=== PATIENT | female | born 1975 | race Caucasian/White ===

== ENCOUNTER 2019-08-22 17:08 | Outpatient (REF) | payer MEDICAID, SELFPAY ==
[2019-08-22 19:26] LABS: Anion Gap 6.2 mmol/L (3-11); BUN 16 mg/dL (7-18); CO2 30.8 mmol/L (21.0-32.0); CREATININE 0.88 mg/dL (0.55-1.02); Calcium 8.8 mg/dL (8.5-10.1); Chloride 107 mmol/L (98-107); Glucose 90 mg/dL (74-106); Potassium 4.3 mmol/L (3.5-5.1); Sodium 144 mmol/L (136-145)
== END 2019-08-22 17:28 ==
LOC: NCHCN 17:08
PROVIDERS: PCP Physician Assistant; Visit Provider Nurse Practitioner Family
DX: I10 Essential (primary) hypertension (principal); R73.9 Hyperglycemia, unspecified
CPT/HCPCS: 80048; 83036

== ENCOUNTER 2021-06-10 15:22 | Outpatient (REF) | payer MEDICAID, SELFPAY ==
[2021-06-13 15:57] LABS: COVID-19 RT-PCR UVMMC Result Positive (Negative)
== END 2021-06-10 15:23 | disposition home or self-care (01) ==
LOC: NCHCN 15:22
PROVIDERS: PCP Physician Assistant; Visit Provider Nurse Practitioner Family
DX: Z20.822 Contact with and (suspected) exposure to COVID-19 (principal); J02.9 Acute pharyngitis, unspecified
CPT/HCPCS: U0003

== ENCOUNTER 2021-09-24 10:21 | Outpatient (REF) | payer MEDICAID, SELFPAY ==
[2021-09-24 18:35] LABS: Anion Gap 10.7 mmol/L (3-11); BUN 17 mg/dL (7-18); CO2 25.3 mmol/L (21.0-32.0); CREATININE 0.7 mg/dL (0.55-1.02); Calcium 8.7 mg/dL (8.5-10.1); Calculated LDL 119 mg/dL (<100); Chloride 106 mmol/L (98-107); Cholesterol 204 mg/dL (<200); Glucose 116 mg/dL (74-106); HDL Cholesterol 59 mg/dL (40-60); Sodium 142 mmol/L (136-145); Triglyceride 131 mg/dL (<150)
== END 2021-09-24 10:22 | disposition home or self-care (01) ==
LOC: NCHCN 10:21
PROVIDERS: PCP Physician Assistant; Visit Provider Nurse Practitioner Family
DX: R73.03 Prediabetes (principal); I10 Essential (primary) hypertension
CPT/HCPCS: 80048; 80061